=== PATIENT | male | born 1995 | race Caucasian/White ===

== ENCOUNTER 2018-10-11 16:17 | Emergency (ER) | payer BC ==
[2018-10-11 17:18] LABS: #Eosinphils 0.1 thou/uL (0.0-0.7); #Lymphocytes 1.8 thou/uL (1.20-3.40); #Monocytes 0.9 thou/uL (0.11-0.59); #Neutrophils 4.8 thou/uL (1.40-6.50); %Basophils 0.6 % (0.0-1.0); %Eosinophils 0.8 % (0.0-10.0); %Lymphocytes 23.8 % (21.0-51.0); %Monocytes 11.7 % (0.0-10.0); %Neutrophils 63.1 % (42.0-75.0); Hemoglobin 14.7 g/dL (14.0-18.0); Mean Corpuscular HGB CONC 33.4 g/dL (32.0-36.0); Mean Corpuscular Volume 95.7 fL (78.0-98.0); Platelet Count 138 thou/uL (130-400); RBC Distribution Width 11.4 % (11.5-14.5); White Blood Cell (WBC) Count 7.6 thou/uL (4.8-10.8)
[2018-10-11 17:30] LABS: ALT (SGPT) 12 U/L (8-55); AST (SGOT) 15 U/L (5-34); Albumin 4.1 g/dL (3.5-5.0); Alkaline Phosphatase 26 U/L (40-150); Anion Gap 13 mmol/L (10-20); BUN (Urea Nitrogen) 22 mg/dL (8.9-20.6); Bilirubin, Total 1.9 mg/dL (0.2-1.2); Calc. Creatinine Clearance 0 mL/min (70-130); Calcium 9.3 mg/dL (7.8-10.44); Carbon Dioxide 28 mmol/L (22-29); Chloride 103 mmol/L (98-107); Estimated GFR-MDRD 66; Globulin 2.2 g/dL (2.4-3.5); Glucose 87 mg/dL (70-105); Potassium 4.1 mmol/L (3.5-5.1); Protein, Total 6.3 g/dL (6.0-8.3); Sodium 140 mmol/L (136-145)
[2018-10-11] MEDS ORDERED: Lorazepam 2 MG/ML VIAL ONE (17:30)
[2018-10-11] MEDS ORDERED: Ketorolac Tromethamine 30 MG/ML VIAL ONE (17:30)
[2018-10-11] MEDS ORDERED: Fentanyl 100 MCG/2 ML VIAL ONE (18:27)
== END 2018-10-11 19:09 | disposition home or self-care (01) ==
LOC: ERS 16:17
DX: L55.1 Sunburn of second degree (principal); E86.0 Dehydration; F41.9 Anxiety disorder, unspecified; F32.9 Major depressive disorder, single episode, unspecified; Z79.899 Other long term (current) drug therapy; Z87.891 Personal history of nicotine dependence; X58.XXXA Exposure to other specified factors, initial encounter
CPT/HCPCS: 36415; 80053; 85025; 93005; 96361; 96374; 96375; J1885; J2060; J3010

== ENCOUNTER 2020-08-18 11:41 | Outpatient (CLI) | payer BC ==
--- NOTE | 2020-08-18 12:41 | MRI ---
MRI BRAIN WITH AND WITHOUT CONTRAST: DATE: 08/18/2020 HISTORY: 25-year-old male with seizure. "R 56.9 convulsions" TECHNIQUE: Multiplanar, multisequence MRI of the brain obtained pre and post IV injection of gadolinium based co ntrast agent. FINDINGS: Many of the images are degraded by patient motion, especially the postcontrast T1-weighted sequences. The ventricles are normal in size and configuration. There is no midline shift or any other evidence of mass effect. There is no extra-axial fluid collection. There is no intra-axial signal abn ormality, abnormal enhancement, mass, recent hemorrhage, or restricted diffusion. No gross asymmetry between the right and left hippocampi IMPRESSION: Normal
[2020-08-18] MEDS ORDERED: Magnevist 469MG/ML 20 ML VIAL ONE (13:47)
== END 2020-08-18 11:42 | disposition home or self-care (01) ==
LOC: MRI 11:41
PROVIDERS: ATTEND Psychiatry & Neurology Neurology
DX: R56.9 Unspecified convulsions (principal)
CPT/HCPCS: 70553; 95816; A9579

== ENCOUNTER 2021-08-10 17:23 | Emergency (ER) | payer OTHER, SELFPAY | END 2021-08-10 18:00 | LOC: ERS 17:23 | DX: S60.511A Abrasion of right hand, initial encounter (principal); M54.50 Low back pain, unspecified; V49.9XXA Car occupant (driver) (passenger) injured in unspecified traffic accident, initial encounter; Z87.891 Personal history of nicotine dependence ==

== ENCOUNTER 2024-05-05 12:54 | Inpatient (IN) | payer SELFPAY ==
[~2024-05-05 12:54] MED LIST: Iopamidol-370 76% 500 ML MDV (1 ML CHARGE) ONE
[2024-05-05] MEDS ORDERED: Aspirin Chewable 81 MG TAB ONE (13:16)
[2024-05-05] MEDS ORDERED: Nitroglycerin 0.4 MG TAB 1 EACH ONE (13:22)
[2024-05-05] MEDS ORDERED: Morphine 2 MG/ML VIAL ONE (13:22)
[2024-05-05 13:32] LABS: #Basophils 0.03 10x3/uL (0.0-0.2); %Basophils 0.3 % (0.0-1.0); %Eosinophils 0.9 % (0.0-10.0); %Lymphocytes 24.7 % (21.0-51.0); %Monocytes 8.3 % (0.0-10.0); %Neutrophils 65.6 % (42.0-75.0); Hemoglobin 14.4 g/dL (14.0-18.0); Mean Corpuscular HGB CONC 34.3 g/dL (32.0-36.0); Mean Corpuscular Hemoglobin 32.9 pg (27.0-31.0); Mean Corpuscular Volume 95.9 fL (78.0-98.0); Mean Platelet Volume 9.8 fL (7.4-10.4); Platelet Count 156 10x3/uL (130-400); RBC Distribution Width 12.3 % (11.5-14.5); Red Blood Cell (RBC) Count 4.38 mill/uL (4.70-6.10)
[2024-05-05 13:59] LABS: ALT (SGPT) 68 U/L (8-55); AST (SGOT) 65 U/L (5-34); Albumin 4.2 g/dL (3.5-5.0); Alkaline Phosphatase 44 U/L (40-110); Anion Gap 14 mmol/L (10-20); BUN (Urea Nitrogen) 19 mg/dL (8.9-20.6); Bilirubin, Total 1.4 mg/dL (0.2-1.2); CK (CPK) 2193 U/L (30-200); Calc. Creatinine Clearance 0 mL/min (70-130); Calcium 9.5 mg/dL (7.8-10.44); Carbon Dioxide 24 mmol/L (22-29); Chloride 105 mmol/L (98-107); Estimated GFR 64; Globulin 2.5 g/dL (2.4-3.5); Glucose 84 mg/dL (70-105); Lipase 14 U/L (8-78); Magnesium 2.2 mg/dL (1.6-2.6); Potassium 3.6 mmol/L (3.5-5.1); Protein, Total 6.7 g/dL (6.0-8.3); Sodium 139 mmol/L (136-145)
[2024-05-05 14:14] LABS: Troponin I Less than 0.010 ng/mL (< 0.028)
[2024-05-05] MEDS ORDERED: Acetaminophen 325 MG TAB PO PRN (14:52)
[2024-05-05 15:08] LABS: Bacteria/HPF None Seen HPF (None Seen); Bilirubin Negative (Negative); Blood, Urine Negative (Negative); CAUTI Indications for Culture Pelvic or flank pain; Clarity Clear (Clear); Glucose, Urine (Dipstick) Normal (Negative); Ketone, Urine Trace mg/dL (Negative); Leukocyte Negative Leu/uL (Negative); Nitrite Negative (Negative); Protein, Urine (Dipstick) Negative (Neg-Trace); RBC/HPF 0-3 HPF (0-3); Specific Gravity, Urine 1.051 (1.002-1.036); Squamous Epithelial None Seen HPF (0-3); Urobilinogen Normal mg/dL (Less than 2); WBC/HPF 0-3 HPF (0-3)
[2024-05-05 15:09] LABS: Urine Culture Reflex No No
[2024-05-05] MEDS ORDERED: Lorazepam 1 MG TAB PO PRN (16:16)
[2024-05-05 17:37] VITALS: BMI 39.4
[2024-05-05] MEDS: Ibuprofen 200 MG TAB PO SCH (18:09)
[2024-05-05] MEDS: Sodium Chloride 0.9% 1,000 ML IV SCH (18:14)
[2024-05-05] MEDS: FLU (Fluarix Triv) TS24-25(6MOS UP)/PF 45 MCG/0.5 ML Syringe IM ONE (20:23)
[2024-05-05 20:25] LABS: Amphetamine Not Detected (NotDetected); Barbiturates Screen Not Detected (NotDetected); Benzodiazepine Screen Detected (NotDetected); Cocaine Metabolite Screen Detected (NotDetected); Methadone Not Detected (NotDetected); Methamphetamine Not Detected (NotDetected); Opiate Screen Detected (NotDetected); Oxycodone Screen Not Detected (NotDetected); Phencyclidine (PCP) Not Detected (NotDetected); THC/Cannabinoid Screen Detected (NotDetected); Tricyclic Screen Detected (NotDetected)
[2024-05-05] MEDS: Famotidine 20 MG TAB PO SCH (20:25)
[2024-05-05] MEDS: Lorazepam 1 MG TAB PO SCH (20:25)
[2024-05-06 05:08] LABS: Anion Gap 10 mmol/L (10-20); BUN (Urea Nitrogen) 18 mg/dL (8.9-20.6); Calc. Creatinine Clearance 155 mL/min (70-130); Carbon Dioxide 26 mmol/L (22-29); Chloride 110 mmol/L (98-107); Estimated GFR 69; Glucose 103 mg/dL (70-105); Potassium 4.4 mmol/L (3.5-5.1); Sodium 142 mmol/L (136-145)
[2024-05-06 05:09] LABS: ALT (SGPT) 53 U/L (8-55); AST (SGOT) 45 U/L (5-34); Albumin 3.2 g/dL (3.5-5.0); Alkaline Phosphatase 31 U/L (40-110); Bilirubin, Total 0.6 mg/dL (0.2-1.2); CK (CPK) 1502 U/L (30-200); Calcium 8.2 mg/dL (7.8-10.44); Globulin 2.1 g/dL (2.4-3.5); Protein, Total 5.3 g/dL (6.0-8.3)
[2024-05-06] MEDS: Enoxaparin 40 MG (0.4 mL) SYRINGE SC SCH (07:48)
[2024-05-07 05:11] LABS: #Basophils 0.03 10x3/uL (0.0-0.2); %Basophils 0.6 % (0.0-1.0); %Eosinophils 1.7 % (0.0-10.0); %Lymphocytes 36.3 % (21.0-51.0); %Monocytes 7.1 % (0.0-10.0); %Neutrophils 53.9 % (42.0-75.0); Hemoglobin 12.9 g/dL (14.0-18.0); Mean Corpuscular HGB CONC 33.1 g/dL (32.0-36.0); Mean Corpuscular Hemoglobin 32.3 pg (27.0-31.0); Mean Corpuscular Volume 97.5 fL (78.0-98.0); Mean Platelet Volume 10.2 fL (7.4-10.4); Platelet Count 131 10x3/uL (130-400); RBC Distribution Width 12.3 % (11.5-14.5)
[2024-05-07 05:25] LABS: Anion Gap 9 mmol/L (10-20); BUN (Urea Nitrogen) 13 mg/dL (8.9-20.6); CK (CPK) 895 U/L (30-200); Calc. Creatinine Clearance 172 mL/min (70-130); Calcium 8.4 mg/dL (7.8-10.44); Carbon Dioxide 25 mmol/L (22-29); Chloride 110 mmol/L (98-107); Estimated GFR 78; Glucose 98 mg/dL (70-105); Magnesium 2.3 mg/dL (1.6-2.6); Potassium 3.9 mmol/L (3.5-5.1); Sodium 140 mmol/L (136-145)
[2024-05-07 16:22] VITALS: BP 161/90; TEMP 98.7
== END 2024-05-07 16:41 | disposition home or self-care (01) | DRG 558 ==
LOC: ERS 12:54 → ERHOLD 14:50 → OBS 17:16 → OBSVTOIN 05-06 19:43
PROVIDERS: ADMIT Hospitalist; ATTEND Student in an Organized Health Care Education/Training Program
DX: M62.82 Rhabdomyolysis (principal); N17.9 Acute kidney failure, unspecified; I30.9 Acute pericarditis, unspecified; F41.9 Anxiety disorder, unspecified; Z91.010 Allergy to peanuts; Z79.899 Other long term (current) drug therapy; F32.A Depression, unspecified; Z87.891 Personal history of nicotine dependence
CPT/HCPCS: 36415; 71045; 71275; 74174; 80048; 80053; 80306; 82550; 83605; 83690; 83735; 83880; 84484; 85025; 93005; 93306; 96372; G0378; J1650; J2272; Q9967